=== PATIENT | male | born 1985 | race Caucasian/White ===

== ENCOUNTER 2017-08-09 05:30 | Emergency (ER) | payer BC ==
[2017-08-09 06:06] LABS: HEMOGLOBIN 14.8 gm/dl (14.0-17.5); RED BLOOD COUNT 5.06 M/UL (4.20-5.50); WHITE BLOOD COUNT 11.2 K/UL (4.5-11.0)
[2017-08-09 06:31] LABS: BUN/CREATININE RATIO 19 (0-10)
== END 2017-08-09 08:10 | disposition home or self-care (01) ==
LOC: ER1 05:30
PROVIDERS: Family Medicine
DX: R10.11 Right upper quadrant pain (principal); R11.2 Nausea with vomiting, unspecified; R19.7 Diarrhea, unspecified
CPT/HCPCS: 36415; 80053; 81001; 82150; 83690; 85025; 99284

== ENCOUNTER 2021-08-13 19:22 | Inpatient (IN) | payer BC ==
[~2021-08-13] VITALS: Ht 177.8 cm; Wt 127.0 kg
[~2021-08-13 19:22] MED LIST: BENTYL 20MG TAB20 MG PO; DOXYCYCLINE HY100 M2 PO; PERCOCET 5/325 T1 EA PO; ZOFRAN4 MG PO
[2021-08-13 20:33] LABS: RED BLOOD COUNT 5.62 M/UL (4.20-5.50); WHITE BLOOD COUNT 18.4 K/UL (4.5-11.0)
[2021-08-13 21:50] LABS: BUN/CREATININE RATIO 10 (0-10)
[2021-08-14 04:12] LABS: HEMOGLOBIN 18.1 gm/dl (14.0-17.5); RED BLOOD COUNT 5.94 M/UL (4.20-5.50); WHITE BLOOD COUNT 15.9 K/UL (4.5-11.0)
[2021-08-14 04:35] LABS: BUN/CREATININE RATIO 12 (0-10)
[2021-08-14 19:23] LABS: HEMOGLOBIN 18.9 gm/dl (14.0-17.5); RED BLOOD COUNT 6.21 M/UL (4.20-5.50)
[2021-08-14 19:25] LABS: WHITE BLOOD COUNT 25.1 K/UL (4.5-11.0)
[2021-08-14 22:46] LABS: BUN/CREATININE RATIO 12 (0-10)
[2021-08-15 02:09] LABS: HEMOGLOBIN 19.8 gm/dl (14.0-17.5); RED BLOOD COUNT 6.49 M/UL (4.20-5.50)
[2021-08-15 02:18] LABS: WHITE BLOOD COUNT 34.1 K/UL (4.5-11.0)
[2021-08-15 02:39] LABS: BUN/CREATININE RATIO 10 (0-10)
[2021-08-15 11:06] LABS: HEMOGLOBIN 18.7 gm/dl (14.0-17.5); RED BLOOD COUNT 6.13 M/UL (4.20-5.50)
[2021-08-15 11:22] LABS: WHITE BLOOD COUNT 32.5 K/UL (4.5-11.0)
--- NOTE | 2021-08-15 14:04 | NUR ---
RECEIVED PT FROM ER WITH HR 140-150'S. PAIN MEDS GIVEN. HR REMAINED ELEVATED. MD NOTIFIED, SURGEON CLINICAL PSYCHIATRIST NOTIFIED. ORDER GIVEN FOR PO NORVASC. MED NOT GIVEN R/T NAUSEA. NEW ORDER NOTED. PT ASYMPTOMATIC WITH HR. C/O ABD PAIN ONLY.
[2021-08-16 05:51] LABS: HEMOGLOBIN 15.1 gm/dl (14.0-17.5); RED BLOOD COUNT 5.06 M/UL (4.20-5.50)
[2021-08-17 07:37] LABS: HEMOGLOBIN 12.5 gm/dl (14.0-17.5); RED BLOOD COUNT 4.35 M/UL (4.20-5.50); WHITE BLOOD COUNT 17.2 K/UL (4.5-11.0)
[2021-08-17 11:15] LABS: HBSAG SCREEN Negative (Negative); HEP A AB, IGM Negative (Negative); HEP B CORE AB, IGM Negative (Negative); HEP C VIRUS AB <0.1 (0.0-0.9)
[2021-08-18 07:23] LABS: HEMOGLOBIN 11.9 gm/dl (14.0-17.5); WHITE BLOOD COUNT 18.8 K/UL (4.5-11.0)
[2021-08-19 07:57] LABS: HEMOGLOBIN 12.5 gm/dl (14.0-17.5); RED BLOOD COUNT 4.19 M/UL (4.20-5.50); WHITE BLOOD COUNT 21.6 K/UL (4.5-11.0)
[2021-08-20 07:12] LABS: HEMOGLOBIN 11.9 gm/dl (14.0-17.5); RED BLOOD COUNT 3.98 M/UL (4.20-5.50); WHITE BLOOD COUNT 23.3 K/UL (4.5-11.0)
[2021-08-20] MEDS ORDERED: CEFUROXIME500 MG PO (10:20)
--- NOTE | 2021-08-20 10:22 | NUR ---
ROOM AIR O2 SAT 87-88%.
== END 2021-08-20 12:35 | disposition home or self-care (01) | DRG 417 ==
LOC: ER1 19:22 → PROG CARE 22:50 → CCU 22:50 → CDU 22:50 → PROG CARE 08-15 09:31 → CCU 08-15 13:58 → PROG CARE 08-17 11:57
PROVIDERS: Emergency Medicine; Internal Medicine; Internal Medicine Gastroenterology; Internal Medicine Nephrology; Physician Assistant Medical; Surgery; ADMIT Internal Medicine
PROC: BF121ZZ Fluoroscopy of Gallbladder using Low Osmolar Contrast (ICD-10-PCS; 2021-08-19)
PROC: 0FT44ZZ Resection of Gallbladder, Percutaneous Endoscopic Approach (ICD-10-PCS; principal; 2021-08-19 07:00)
DX: K85.10 Biliary acute pancreatitis without necrosis or infection (principal); J18.9 Pneumonia, unspecified organism; J96.01 Acute respiratory failure with hypoxia; Z20.822 Contact with and (suspected) exposure to COVID-19; N17.0 Acute kidney failure with tubular necrosis; A04.72 Enterocolitis due to Clostridium difficile, not specified as recurrent; Z68.41 Body mass index [BMI] 40.0-44.9, adult; E86.0 Dehydration; K80.20 Calculus of gallbladder without cholecystitis without obstruction; E66.01 Morbid (severe) obesity due to excess calories; E87.6 Hypokalemia; E83.39 Other disorders of phosphorus metabolism; R00.0 Tachycardia, unspecified; R74.01 Elevation of levels of liver transaminase levels; E80.6 Other disorders of bilirubin metabolism; K76.0 Fatty (change of) liver, not elsewhere classified
CPT/HCPCS: 36415; 71045; 76705; 80048; 80053; 80061; 80074; 80076; 80202; 80307; 81001; 82150; 82248; 82803; 82962; 83605; 83690; 83735; 84100; 85025; 85027; 87040; 93005; 94640; 94664; 94760; 96374; 96375; 96376; 99285; G0378; G0480; J0360; J1100; J1170; J1335; J1644; J2001; J2250; J2270; J2405; J2543; J2550; J2704; J3010; J3370; J3480; J7030; J7070; J7120; Q9967; U0002